=== PATIENT | female | born 1990 | race Caucasian/White ===

== ENCOUNTER → 2021-04-24 13:30 | Outpatient (BNVA) | payer OTHER, SELFPAY | PROVIDERS: Family Provider Family Medicine; PCP Family Medicine; Visit Provider Obstetrics & Gynecology | DX: Z12.4 Encounter for screening for malignant neoplasm of cervix (principal); N92.0 Excessive and frequent menstruation with regular cycle | CPT/HCPCS: 80053; 84443; 85025; 88175; 88305 ==

== ENCOUNTER → 2021-04-29 14:01 | Outpatient (BNVA) | payer OTHER, SELFPAY | PROVIDERS: Family Provider Family Medicine; PCP Family Medicine; Visit Provider Obstetrics & Gynecology | DX: N93.9 Abnormal uterine and vaginal bleeding, unspecified (principal); N94.6 Dysmenorrhea, unspecified | CPT/HCPCS: 76830 ==

== ENCOUNTER → 2021-05-02 13:22 | Outpatient (BNVA) | payer OTHER, SELFPAY | PROVIDERS: Family Provider Family Medicine; PCP Family Medicine; Visit Provider Obstetrics & Gynecology | DX: N92.0 Excessive and frequent menstruation with regular cycle (principal); Z20.822 Contact with and (suspected) exposure to COVID-19 | CPT/HCPCS: 87635 ==

== ENCOUNTER 2021-05-06 12:02 | Inpatient (IN) | payer OTHER, SELFPAY ==
[2021-05-05 14:12] VITALS: BMI 37.3
[2021-05-06] VITALS (21 sets, daily range): BP systolic 103–133; BP diastolic 67–90; PULSE 60–95; RESP 12–20; TEMP 36.2–36.7; O2SAT 95–100
--- NOTE | 2021-05-06 08:49 | ANES.PREANE2 ---
Pre-Anesthetic Assessment Pre-Anesthetic Assessment: Height/Weight: Height 1.7 m Weight 107.955 kg Preop Diagnosis: abnormal uterine bleeding, pelvic pain, dysmenorrhea Proposed Procedure: Operation Date: 05/06/21 09:10 Proposed Procedures p Total Abdominal Hysterectomy 39743 n92.0(Not Applicable) - Ju Sr MD s bilateral Salpingectomy(Bilateral) - Ju Sr MD Familial anesthetic complications: None Was Beta Bob taken within 24 hours: N/A Was Clonidine taken within 24 hours: N/A Last intake: Intake Last Liquid Date 05/05/21 Last Solid Date 05/05/21 Social: Social History: No alcohol and No tobacco Exam: Pre-Anes Outpt Exam: alert, oriented x 3, clear to auscultation bilaterally and regular rate & rhythm Airway: Cervical ROM: WNL MP: 2 Dentition: Chipped Anesthetic Plan: ASA status: 1 Anesthesia: General Risk of > 500 ml blood loss (7ml/kg in children): No PFSH Anesthesia PFSH: Family History Father Diabetes type 2 Mother Hypertension Thyroid disease Denies family history of Ovarian cyst Clotting disorder Chronic kidney disease (CKD) Bleeding disorder Cancer Stroke Female Reproductive History: Date of last menstrual period: 04/23/21 Data Anesthesia Cardiac Studies: No Data to Display
[2021-05-06] MEDS: acetaminophen 1,000 MG/100 ML PIGGYBACK 400 MG IV (08:51)
[2021-05-06] MEDS: gabapentin 300 mg Capsule PO (08:54)
[2021-05-06] MEDS: midazolam 1 mg/mL INJ 2 mL 2 MG IVP (08:54)
[2021-05-06] MEDS: CELEcoxib 200 mg Capsule 400 MG PO (08:54)
[2021-05-06] MEDS: ketorolac 30 mg/mL INJ IVP ×3 (08:54→21:13)
[2021-05-06] MEDS: sodium chloride 0.9% 1,000 ML 30 ML IV (08:55)
[2021-05-06] MEDS: scopolamine 1.5 Patch 1 PATCH TRANSDERMA (08:55)
[2021-05-06 08:56] LABS: Basophils % 0.8 %; Eosinophils # 0.3 10^3/uL (0.0-0.8); Eosinophils % 5.8 %; Lymphocytes # 1.3 10^3/uL (0.8-4.8); Lymphocytes % 26.3 %; Mean Corpuscular HGB Conc 32.4 g/dL (30.0-36.0); Mean Corpuscular Hemoglobin 28.4 pg (28.0-34.0); Mean Corpuscular Volume 87.7 fL (81-99); Mean Platelet Volume 9.4 fL (7.4-10.4); Monocytes # 0.4 10^3/uL (0.2-0.9); Neutrophils # 3.01 10^3/uL (1.8-7.7); Neutrophils % 59.9 %; Nucleated Red Blood Cells % 0 %; Platelet Count 240 10^3/cmm (130-400); Red Blood Count 4.22 10^6/uL (4.1-5.3); Red Cell Distribution Width 13.8 % (12.1-15.1)
--- NOTE | 2021-05-06 08:57 | W.PM.OPSUD ---
Surgery/Procedure H&P Update DATE OF PROCEDURE: May 06, 2021 DATE H&P PERFORMED: 05/02/21 H&P UPDATE INFORMATION: I have reviewed H&P completed within last 30 days, I have examined patient prior to procedure and No changes to prior documentation PREOP DIAGNOSIS: abnormal uterine bleeding, pelvic pain, dysmenorrhea PRIMARY INDICATION FOR PROCEDURE: abnormal uterine bleeding, pelvic pain and dysmenorrhea PLANNED PROCEDURE: Operation Date: 05/06/21 09:10 Proposed Procedures p Total Abdominal Hysterectomy 39914 n92.0(Not Applicable) - Ju Sr MD s bilateral Salpingectomy(Bilateral) - Ju Sr MD
[2021-05-06 09:09] LABS: OR HCG Qualitative Urine Negative (Negative)
[2021-05-06 09:14] LABS: Anion Gap 12.8 (5-19); Blood Urea Nitrogen 9 mg/dL (6-20); Calcium 8.9 mg/dL (8.5-10.5); Carbon Dioxide 26 mmol/L (22-29); Chloride 103 mmol/L (98-107); Glomerular Filtration Rate 143.9 mL/min (90-130); Glucose 99 mg/dL (65-115); Osmolality Calculated 285 mOsm/kg (285-295); Potassium 3.8 mmol/L (3.5-5.1); Sodium 138 mmol/L (136-145)
[2021-05-06 11:28] LABS: Basophils % 0.3 %; Eosinophils # 0.1 10^3/uL (0.0-0.8); Eosinophils % 1.8 %; Hematocrit 31.2 % (37.0-47.0); Lymphocytes # 0.8 10^3/uL (0.8-4.8); Lymphocytes % 10.3 %; Mean Corpuscular HGB Conc 32.1 g/dL (30.0-36.0); Mean Corpuscular Hemoglobin 28.2 pg (28.0-34.0); Mean Corpuscular Volume 88.1 fL (81-99); Mean Platelet Volume 9.6 fL (7.4-10.4); Monocytes # 0.3 10^3/uL (0.2-0.9); Monocytes % 3.6 %; Neutrophils % 83.7 %; Nucleated Red Blood Cells % 0 %; Platelet Count 244 10^3/cmm (130-400); Red Blood Count 3.54 10^6/uL (4.1-5.3); Red Cell Distribution Width 13.7 % (12.1-15.1)
--- NOTE | 2021-05-06 11:35 | PC.NURSE ---
1128 cbc drawn and sent to lab due to blood loss
--- NOTE | 2021-05-06 11:46 | P.OP_ITS ---
Operative Report Date of procedure: May 06, 2021 Pre-op Diagnosis: abnormal uterine bleeding, pelvic pain, dysmenorrhea Post-op diagnosis: same Post-op Diagnosis: enlarged uterus, normal appearing tubes and ovaries Procedure Done: total abdominal hysterectomy with bilateral salpingectomy Specimens removed/disposition: uterus and bilateral fallopian tubes to pathology Anesthesia: General Estimated blood loss (mL): 1,100 IV fluids (mL): 1,300 IV fluids: plus 250 ml of albumin Urine output (mL): 300 Complications: excessive bleeding during surgery. every surface bled, if touched Condition: stable Disposition: PACU Brief History: The patient presented for heavy, irregular menstrual bleeding and pelvic pain. She decided on a hysterectomy as she was tired of the pain and bleeding Procedure: The patient was taken to the operating room where general anesthesia was administered and found to be adequate. She was prepped and draped in the normal sterile fashion in the dorsal supine position. A Pfannenstiel skin incision was made and carried down to the underlying layer of fascia. The fascia was nicked in the midline and extended laterally with the Davies scissors. The fascia was then tented up and the rectus muscles dissected off sharply. The rectus muscles were in the midline and the abdomen entered bluntly with the digit. This peritoneal incision was extended superiorly and inferiorly with good visualization of the bladder. The O'Jese-O'Wynn retractor was placed and the bowel packed away. There was adhesions of the omentum to the right pelvic sidewall as well as several adhesion of the bowel and small bowel to the left adnexa. The round ligament was suture-ligated and opened. This was performed bilaterally. A window was made medial to the infundibulopelvic li gament and superior to the fallopian tube and ovary. The infundibulopelvic ligament was clamped cut and suture-ligated bilaterally, leaving the tubes and ovaries. The fallopian tube was grasped and using the cautery device the fallopian tube was cauterized and cut until it was removed. This was performed bilaterally and there was excellent hemostasis, post removal. The bladder flap was created sharply and the bladder reflected caudally. The uterine arteries and cardinal ligaments were then clamped cut and suture-ligated down to the angle of the vagina. The vaginal cuff was clamped and cut and the specimen was removed. The vaginal cuff was closed with 0 Vicryl incorporating the uterosacral ligaments into the lateral aspects of the vaginal cuff. There bleeding from the cuff and bladder. The cuff was reapproximated and there was excellent hemostasis. The anterior and posterior were reapproximated. The pelvis was irrigated. The O'Jese-O'Wynn retractor as well as the packing was removed. The peritoneum was closed with 2-0 Monocryl in a running fashion. The fascia was closed with 0 Vicryl in a running fashion with 2 separate sutures overlapping in the midline. The skin was closed with absorbable ervin. The patient tolerated the procedure well. Sponge lap and needle counts were correct x2. She was taken to the recovery room in stable condition.
[2021-05-06] MEDS: HYDROmorphone 1 mg/mL INJ 1 mL 0.5 MG IVP (12:10)
--- NOTE | 2021-05-06 12:12 | SUR.PHASEI ---
5220- SPOKE WITH DR HUERTA REGARDING PAIN MANAGEMENT, PERMISSION TO ADVANCE TO [facility] FOR PAIN INTERVENTION.
[2021-05-06] MEDS: ondansetron 2 mg/ML SDV 2 mL 4 MG IVP ×3 (12:19→23:13)
[2021-05-06] MEDS: diphenhydrAMINE 50 mg/mL SDV 1mL 12.5 MG IVP (12:23)
[2021-05-06] MEDS: metoclopramide 5 mg/mL SDV 2 mL 10 MG IVP (12:33)
[2021-05-06] MEDS: oxyCODONE-APAP 5-325 mg Tablet PO (13:11)
[2021-05-06] MEDS: HYDROmorphone 1 mg/mL INJ 1 mL 1.5 MG IVP ×3 (14:07→23:05)
[2021-05-06] MEDS: dextrose 5%-lactated ringers 1,000 ML 125 ML IV ×2 (15:29→23:13)
--- NOTE | 2021-05-06 15:53 | ANE.PACU2 ---
Inpatient post-anesthesia follow up: Airway intact: Yes Vital signs: Temperature 97.4 F Pulse Rate 76 Respiratory Rate 16 Blood Pressure 104/70 Pulse Oximetry 100 Oxygen Delivery Me thod Room Air Oxygen Flow Rate 6 Fraction of Inspir ed Oxygen Hydration adequate: Yes Nausea and vomiting: No Pain level: 4 Mental status: Baseline
--- NOTE | 2021-05-06 20:15 | PC.NURSE ---
Patient standing at side of bed, tolerated shortly. Patient complains of sudden nausea and requests to lay back down.
[2021-05-07] VITALS (8 sets, daily range): BP systolic 103–133; BP diastolic 59–84; PULSE 69–78; RESP 14–18; TEMP 36.3–36.7; O2SAT 98–100
[2021-05-07] MEDS: ketorolac 30 mg/mL INJ IVP ×2 (03:23→09:05)
[2021-05-07 05:39] LABS: Hematocrit 31.5 % (37.0-47.0); Hemoglobin 9.8 g/dL (11.5-15.3); Mean Corpuscular HGB Conc 31.1 g/dL (30.0-36.0); Mean Corpuscular Hemoglobin 28.1 pg (28.0-34.0); Mean Corpuscular Volume 90.3 fL (81-99); Mean Platelet Volume 9.5 fL (7.4-10.4); Platelet Count 264 10^3/cmm (130-400); Red Blood Count 3.49 10^6/uL (4.1-5.3); Red Cell Distribution Width 13.9 % (12.1-15.1); White Blood Count 10.8 10^3/uL (4.0-10.0)
[2021-05-07] MEDS: oxyCODONE-APAP 5-325 mg Tablet PO ×3 (07:09→20:05)
[2021-05-07] MEDS: dextrose 5%-lactated ringers 1,000 ML 125 ML IV (07:39)
[2021-05-07] MEDS: docusate sodium 100 mg Capsule PO ×2 (09:05→17:51)
[2021-05-07] MEDS: ferrous sulfate EC 325 mg Tablet PO (09:05)
--- NOTE | 2021-05-07 09:21 | PC.NURSE ---
Patient was offered dilaudid after her walk and states that she doesnt think she needs it at this time and will hold off.
--- NOTE | 2021-05-07 09:22 | PC.NURSE ---
Patient ambulated down the guerra at this time, no complaints of dizziness, nausea or feelings of being lightheaded.
--- NOTE | 2021-05-07 10:42 | P.PN_ITS ---
Subjective Subjective: Interval history: The patient is doing well this morning. Her pain is better controlled. Her guerra catheter is in place and she is having some pressure from that. She is tolerating a clear diet and has had some nausea, but feels like eating today. She has been up ambulating and denies any dizziness. Medications: Reviewed: Yes Vitals/I&O/Wt Last Vital Signs Temp 97.8 F 05/07/21 05:30 Pulse 78 05/07/21 05:30 Resp 14 05/07/21 07:09 BP 107/69 05/07/21 05:30 Pulse Ox 100 05/07/21 05:30 05/06/21 05/07/21 05/07/21 22:59 06:59 14:59 Intake Total 50 / 1750 966.667 / 2716.667 1350 / 1350 Output Total 400 / 2300 600 / 2900 200 / 200 Balance -350 / -550 366.667 / -981.958 1014 / 1150 Weight last 48 hrs Weight 238 lb Physical Exam Narrative: EXAM NARRATIVE: pain is well controlled on current medications. There has been great urine output. Hemoglobin remains stable. Const: COMMON NORMALS: no acute distress, patient oriented x3, no limitations, healthy appearing, alert and well nourished GENERAL APPEARANCE: cooperative, comfortable, well kempt and well developed ORIENTATION/CONSCIOUSNESS: Yes awake, Yes oriented to person, Yes oriented to place and Yes oriented to time Resp: COMMON NORMALS: normal respiratory effort EFFORT & INSPECTION: Yes ab le to speak in complete sentences GI: COMMON NORMALS: Soft to palpation and non-tender PALPATION: Yes Soft to palpation Extremity: COMMON NORMALS: normal to inspection, full ROM, no clubbing, cyanosis or edema and no calf tenderness Neuro: COMMON NORMALS: patient oriented x3 SENSORIUM/ORIENTATION: Yes alert, Yes oriented to person, Yes oriented to place and Yes oriented to time Psych: COMMON NORMALS: mental status grossly normal, Normal thought process present and cooperative APPEARANCE: Yes grossly normal and Yes well kempt ATTITUDE: Yes calm and Yes engaged THOUGHT PROCESS: Normal thought process present Skin: WOUNDS: Yes surgical site (clean/dry and covered) Urinary Catheter Management^: Guerra: Cath Placed During This Visit: yes Urinary Catheter Date of Insertion: 05/06/21 Urinary Catheter Time of Insertion: 09:35 Data : 05/07/21 05:15 05/06/21 08:45 A&P Assessment and plan (1) Postoperative state: d/c guerra saline lock IV advance to regular diet encourage ambulation home tomorrow Status: Acute Attestations Medical Necessity Statement*: The patient had an open surgery and needs to be here at least 2 nights Coding Level of Care Code Acute Health Informatics Specialist for Anthony Talamantes Diagnoses Postoperative state Z98.890
[2021-05-07] MEDS: ibuprofen 800 mg tablet PO ×2 (15:18→21:42)
[2021-05-08 06:39] VITALS: BP 121/72; PULSE 92; RESP 18; TEMP 36.7
[2021-05-08] MEDS: ibuprofen 800 mg tablet PO ×2 (07:18→11:31)
[2021-05-08] MEDS: HYDROcodone-acetaminophen 5-325 mg Tablet PO (07:19)
[2021-05-08] MEDS: ondansetron 2 mg/ML SDV 2 mL 4 MG IVP (08:03)
--- NOTE | 2021-05-08 08:49 | PM.DCS ---
Discharge Providers Date of Admission: 05/06/21 12:02 Date of Discharge: May 08, 2021 Attending Provider at Admission: Ju Sr MD Attending Provider at Discharge: Ju Sr MD Primary Care Provider: Valeriy Bustos MD Diagnoses at Discharge Discharge Diagnosis (1) Postoperative state: Status: Acute Reason for Visit Reason for Visit: total abdominal hysterectomy bilateral salpingecto Hospital Course Hospital Course The patient presented for surgery. She had a total abdominal hysterectomy with bilateral salpingectomy. she had increased bleeding during surgery, but did not require a blood transfusion. She did well postoperatively and was ready for discharge on day #2 Physical Exam Urinary Catheter Management^: Saravia: Cath Placed During This Visit: yes, but has since been removed by the nurse Reason for Continuing Indwelling Catheter: Decision to DC Catheter Urinary Catheter Date of Insertion: 05/06/21 Urinary Catheter Time of Insertion: 09:35 Date Urinary Catheter Removed: 05/07/21 Time Urinary Catheter Discontinued: 10:25 Discharge Data Data Completed and Pending: Pending at discharge Category Date Time Status Urine Culture [facility] 05/07/21 01:30 Results Pathology: Surgic al [PTH] Routine Pth 05/06/21 11:59 Received Vitals: Last Vital Signs Temp 98.1 F 05/08/21 06:39 Pulse 92 05/08/21 06:39 Resp 18 05/08/21 06:39 BP 121/72 05/08/21 06:39 Pulse Ox 98 05/07/21 21:00 Discharge Plan Discharge Patient Disposition: Home Condition: Stable Prescriptions: New hydrocodone-acetaminophen 5-325 mg Tablet 1 tab PO Q4H PRN (Reason: Moderate To Severe Pain) Qty: 30 RF: 0 Continued ferrous sulfate 325 mg (65 mg iron) tablet 325 mg PO DAILY RF: 0 multivitamin [Daily Multi-Vitamin] Tablet 1 tab PO DAILY RF: 0 Discharge Orders: Discharge Order (Routine); Ordered 05/08/21 Ordered By: Ju Sr Referrals: Ju Sr MD [Physician] - 05/15/21 12:45 pm (Your 1 week post-op appointment is scheduled for 05/15/[address] Sr at 12:45.) Patient Instructions: Abdominal Hysterectomy (DC), OB Abdominal Surgery - [facility], OB Discharge Report, OB Food/Drug Interaction Guide, Opioid Safety Discharge Attestations Time Spent in Discharge Care*: less than 30 min Quality Metrics Clinical Quality Measures During this hospital stay, did patient experience: None Coding Level of Care Code Acute Chg DC note Diagnoses Postoperative state Z98.890
[2021-05-08] MEDS: multivitamin therapeutic Tablet 1 TAB PO (09:24)
[2021-05-08] MEDS: docusate sodium 100 mg Capsule PO (09:24)
[2021-05-08] MEDS: ferrous sulfate EC 325 mg Tablet PO (09:24)
[2021-05-08 12:41] VITALS: BP 110/69; PULSE 68; RESP 16; TEMP 36.6; O2SAT 100
== END 2021-05-08 12:20 | disposition home or self-care (01) | DRG 743 ==
LOC: OBGYN 05-07 13:26
PROVIDERS: Anesthesiology; Admitting Provider Obstetrics & Gynecology; PCP Family Medicine; Visit Provider Obstetrics & Gynecology
PROC: 0UT90ZZ Resection of Uterus, Open Approach (ICD-10-PCS; CPT 58150; principal; 2021-05-06 09:00)
PROC: 0UT90ZZ Resection of Uterus, Open Approach (ICD-10-PCS; CPT 58700; 2021-05-06 09:00)
DX: N93.9 Abnormal uterine and vaginal bleeding, unspecified (principal); N94.6 Dysmenorrhea, unspecified; R10.2 Pelvic and perineal pain; N85.2 Hypertrophy of uterus
CPT/HCPCS: 36415; 80048; 81025; 84703; 85025; 85027; 87086; 88302; 88307; 96365; 96374; 96375; J0690; J1100; J1170; J1200; J1885; J2250; J2405; J2704; J2765; J3010; J3490; J7030; P9041

== ENCOUNTER → 2021-06-20 09:49 | Outpatient (BNVA) | payer OTHER, SELFPAY | PROVIDERS: PCP Family Medicine; Visit Provider Obstetrics & Gynecology | DX: A63.0 Anogenital (venereal) warts (principal) | CPT/HCPCS: 88305 ==

== ENCOUNTER 2024-11-24 21:35 | Emergency (ER) | payer OTHER, SELFPAY ==
[2024-11-24 21:44] VITALS: BP 128/79; PULSE 83; RESP 20; TEMP 36.6; O2SAT 96; BMI 39.1
--- NOTE | 2024-11-24 22:05 | ED_ITS ---
HPI - Extremity Problem General: Chief complaint: Extremity Injury, Lower Stated complaint: left side pain Time Seen by Provider: 11/24/24 21:41 History of Present Illness: 34-year-old female was sliding today and hit did not which caused her to come up off the leg and back down. Since then patient has had increased pain and discomfort to her low back and left hip. Patient denies any chronic back pain. Patient does have a history of anemia. Related Data Home Medications Medication Instructions Recorded Confirmed ferrous sulfate 325 mg (65 mg 325 mg PO DAILY 04/24/21 06/20/21 iron) tablet multivitamin (Daily Multi-Vitamin 1 tab PO DAILY 04/24/21 06/20/21 tablet) Previous Rx's Medication Instructions Recorded flavoxate 100 mg tablet 100 mg PO TID #30 tabs 05/12/21 cyclobenzaprine 5 mg tablet 5 mg PO TID PRN muscle spasm #20 11/24/24 tabs ibuprofen 600 mg tablet 600 mg PO Q6H PRN fever or pain 11/24/24 #60 tabs Allergies Allergy/AdvReac Type Severity Reaction Status Date / Time sulfamethoxazole Allergy Mild hives Verified 11/24/24 21:49 [From ] trimethoprim [From ] Allergy Mild hives Verified 11/24/24 21:49 Review of Systems General: Reports: 10 or more systems reviewed and unremarkable except in HPI and below Musc: Reports: back pain and extremity pain [facility] ED PFSH: Family History Father Diabetes type 2 Mother Hypertension Thyroid disease Denies family history of Ovarian cyst Clotting disorder Chronic kidney disease (CKD) Bleeding disorder Cancer Stroke Physical Exam Const: COMMON NORMALS: alert HENMT: COMMON NORMALS: normocephalic HEAD & SCALP: normocephalic Neck/C-Spine: COMMON NORMALS: full ROM Resp: COMMON NORMALS: normal respiratory effort and clear to auscultation bilaterally AUSCULTATION: clear to auscultation bilaterally Back/Pelvis: THORACIC SPINE/UPPER BACK: Yes normal to inspection LUMBAR SPINE/LOWER BACK: Yes lumbar spinal tenderness Lumbar spinal tenderness location: L4 and L5 and Yes paraspinal muscle tenderness Lumbar paraspinal muscle tenderness: left SACROILIAC JOINTS: Yes SI joint(s) abnormal SI joint details: tender to palpation Extremity: COMMON NORMALS: full ROM Neuro: SENSORIUM/ORIENTATION: Yes alert Skin: COMMON NORMALS: turgor normal GENERAL SKIN EXAM: turgor normal Course Vital Signs: Vital signs: Vital Signs Temperature 98 F 11/24/24 21:44 Pulse Rate 73 11/24/24 22:54 Respiratory Rate 16 11/24/24 22:54 Blood Pressure 149/64 11/24/24 22:54 Pulse Oximetry 100 11/24/24 22:54 Oxygen Delivery Me thod Room Air 11/24/24 22:54 MDM - Extremity (Nontraumatic) Medical Decision Making 44-year-old female comes in today with complaints of low back pain and left hip pain after a sledding injury. Patient appears nontoxic. Patient appears in no acute distress. Patient is ambulatory with some mild to moderate pain and occasional muscle spasms. On exam patient has tenderness in the lower lumbar and the left sacroiliac joint. Patient also has some pain to the lateral hip. Differential diagnosis includes strain, contusion, intervertebral disc disease, facet arthritis, fracture. X-ray of the lumbar spine and the hip with pelvis noted no fractures or significant abnormalities. Patient was discharged home with ibuprofen and cyclobenzaprine to help with her pain and any muscle spasms. Patient was also given 1 hydrocodone in the emergency department for acute pain. Patient reported understanding of care plan need for follow-up or return to the ER. Lab Data Radiology Impressions Hip/Pelvis X-Ray 11/24/24 22:24 IMPRESSION: No acute findings. Lumbar Spine X-Ray 11/24/24 22:24 IMPRESSION: No acute findings. All radiology interpretation(s) finalized by discharge Discharge Plan Discharge Patient Disposition: Home Clinical Impression: Injury due to sledding accident, Back pain due to injury, Acute pain of left hip Condition: Stable Prescriptions: New cyclobenzaprine 5 mg tablet 5 mg PO TID PRN (Reason: muscle spasm) Qty: 20 0RF ibuprofen 600 mg tablet 600 mg PO Q6H PRN (Reason: fever or pain) Qty: 60 0RF No Action ferrous sulfate 325 mg (65 mg iron) tablet 325 mg PO DAILY multivitamin [Daily Multi-Vitamin] Tablet 1 tab PO DAILY flavoxate 100 mg tablet 100 mg PO TID Qty: 30 0RF Discharge Orders: Discharge ED (Routine); Ordered 11/24/24 Ordered By: Hans Mccartney Referrals: Valeriy Bustos MD [Primary Care Provider] - Discharge Diet: Usual diet Discharge Activity: Increase activity as tolerated Patient Instructions: Musculoskeletal Pain (ED) Activity Restrictions/Additional Instructions: Home and rest. Activity as tolerated. Follow-up with primary care in 3 to 5 days for recheck. Return to ED for new concerns. Coding Level of Care Code ED Executive Assistant To General Counsel for Anthony Talamantes
--- NOTE | 2024-11-24 22:24 | XRR_ITS ---
PROCEDURE INFORMATION: Exam: XR Lumbosacral Spine Exam date and time: 11/24/2024 10:35 PM Age: 34 years old Clinical indication: Injury or trauma; Blunt trauma (contusions or hematomas); Patient HX: Patient was snow sledding and hit a large bump covered by snow that caused her to go airborn then hit the ground. C/O low back and left hip pain. TECHNIQUE: Imaging protocol: Radiologic exam of the lumbosacral spine. Views: 2 or 3 views. COMPARISON: CR XR hip LT 2-3V wo/w pel* [id number] 11/24/2024 10:35 PM FINDINGS: Bones/joints: Normal. No acute fracture. Normal alignment. Soft tissues: Unremarkable. XR/XR lumbar spine 2-3V* [id number] IMPRESSION: No acute findings.
--- NOTE | 2024-11-24 22:24 | XRR_ITS ---
PROCEDURE INFORMATION: Exam: XR Left Hip Exam date and time: 11/24/2024 10:35 PM Age: 34 years old Clinical indication: Injury or trauma; Blunt trauma (contusions or hematomas); Patient HX: Patient was snow sledding and hit a large bump covered by snow that caused her to go airborn then hit the ground. C/O low back and left hip pain. ; Additional info: Injury, include pelvis TECHNIQUE: Imaging protocol: Radiologic exam of the left hip. Views: 2 or 3 views hip with pelvis when performed. COMPARISON: CT abdomen pelvis w con* [id number] 02/15/2019 6:16 PM FINDINGS: Bones/joints: Unremarkable. No acute fracture. Soft tissues: Unremarkable. XR/XR hip LT 2-3V wo/w pel* [id number] IMPRESSION: No acute findings.
--- NOTE | 2024-11-24 22:35 | PC.NURSE ---
PT TAKEN TO CT AT 2030
[2024-11-24 22:54] VITALS: BP 149/64; PULSE 73; RESP 16; O2SAT 100
[2024-11-24] MEDS: HYDROcodone-acetaminophen 7.5-325 mg Tablet 1 TAB PO (23:55)
[2024-11-25 00:55] VITALS: BP 134/71; PULSE 68; O2SAT 98
== END 2024-11-24 23:55 | disposition home or self-care (01) ==
PROVIDERS: Emergency Provider Nurse Practitioner Family; PCP Family Medicine
DX: M54.9 Dorsalgia, unspecified (principal); M25.552 Pain in left hip; Y93.23 Activity, snow (alpine) (downhill) skiing, snowboarding, sledding, tobogganing and snow tubing
CPT/HCPCS: 72100; 73502; 99284